=== PATIENT | female | born 1960 | race Caucasian/White ===

== ENCOUNTER 2020-04-01 20:18 | Emergency (ER) | payer MEDICAID ==
[~2020-04-01] VITALS: Ht 167.6 cm; Wt 79.5 kg
[~2020-04-01 20:18] MED LIST: ALBU8.5H8 IH
[2020-04-01 20:39] VITALS: BP 132/86
[2020-04-01 21:12] LABS: BASOPHILS # (AUTO) 0.1 X10'3 (0-0.2); BASOPHILS % (AUTO) 0.3 % (0-1); EOSINOPHILS % (AUTO) 0.1 % (0-6); HEMATOCRIT 42.8 % (35.0-45.0); HEMOGLOBIN 14.9 g/dl (12.0-16.0); LYMPHOCYTES # (AUTO) 1.2 X10'3 (1.1-4.8); MEAN CORPUSCULAR HEMOGLOBIN 36.1 PG (27.0-31.0); MEAN CORPUSCULAR HGB CONC 34.7 g/dL (33.0-36.5); MEAN CORPUSCULAR VOLUME 104.1 FL (78-98); MEAN PLATELET VOLUME 7.9 FL (7.4-10.4); MONOCYTES # (AUTO) 1.3 X10'3 (0-0.9); MONOCYTES % (AUTO) 8.3 % (2-12); NEUTROPHILS # (AUTO) 12.7 X10'3 (1.8-7.7); NEUTROPHILS % (AUTO) 83.3 % (42-75); PLATELET COUNT 288 X10'3 (140-440); RED BLOOD COUNT 4.11 X10'6 (4.20-5.60); RED CELL DISTRIBUTION WIDTH 13.2 % (11.5-14.5); WHITE BLOOD COUNT 15.2 X10'3 (4.5-11.0)
[2020-04-01 21:27] LABS: ALANINE AMINOTRANSFERASE 65 U/L (12-78); ALBUMIN 3.6 G/DL (3.4-5.0); ALBUMIN/GLOBULIN RATIO 0.9 (1.1-1.5); ALKALINE PHOSPHATASE 144 IU/L (46-116); ANION GAP 10 (8-16); ASPARTATE AMINO TRANSFERASE 43 U/L (10-37); BILIRUBIN,TOTAL 0.4 MG/DL (0.1-1.0); BLOOD UREA NITROGEN 18 MG/DL (7-18); BUN/CREATININE RATIO 13.7 (6.6-38.0); CALCIUM 9.5 MG/DL (8.5-10.1); CHLORIDE 104 MMOL/L (99-107); CREATININE 1.31 MG/DL (0.40-0.90); GLUCOSE 118 MG/DL (70-104); LIPASE < 50 U/L (73-393); POTASSIUM 4.6 MMOL/L (3.5-5.1); SODIUM 141 MMOL/L (135-145); TOTAL PROTEIN 7.4 G/DL (6.4-8.2); eGFR 41 ML/MIN
--- NOTE | 2020-04-01 21:47 | NUR ---
NEIGHBOR MARCELA CALLED, STATES TO SEND PT HOME VIA [facility] AND THAT SHE WILL PAY FOR IT. [phone]
[2020-04-01] MEDS ORDERED: ondansetron/PF 4mg/2ml inj IV ONE (22:10)
[2020-04-01] MEDS ORDERED: normal saline 1000ML IV soln IVB ONE (22:10)
[2020-04-01] MEDS ORDERED: morphine 4 MG/ML inj SYRINge IV ONE (22:10)
[2020-04-01] MEDS ORDERED: iohexol 300mg/ml 100ml inj. ONE (22:15)
[2020-04-01 22:26] LABS: OCCULT BLOOD STOOL POSITIVE (Neg)
[2020-04-01 22:29] LABS: CLARITY,URINE CLEAR (Clear); COLOR,URINE YELLOW (Yellow); GLUCOSE, URINE NEGATIVE (Neg); KETONES,URINE NEGATIVE (Neg); LEUKOCYTE ESTERASE ,URINE TRACE (Neg); NITRITES, URINE NEGATIVE (Neg); OCCULT BLOOD,URINE MODERATE (Neg); PROTEIN,URINE NEGATIVE (Neg); UROBILINOGEN,URINE 0.2 E.U/dL (0.2-1.0)
[2020-04-01 22:33] LABS: UA COLLECTION TYPE CLN CATCH MIDSTREAM
[2020-04-01 22:34] LABS: WBC,URINE 0-4 /HPF (0-4)
[2020-04-01 22:35] LABS: BACTERIA,URINE 2+ /HPF (Neg); COARSE GRANULAR CAST 0-3 /LPF (NEGATIVE); RBC,URINE 0-2 /HPF (0-2); SQUAMOUS EPITHELIAL CELL,UR FEW /LPF (FEW)
[2020-04-01] MEDS ORDERED: acetaminophen 325mg tablet PO ONE (22:35)
--- NOTE | 2020-04-01 22:37 | NUR ---
PT REFUSED MORPHINE, DR BARNEY INFORMED AND HE ORDERED TYLENOL FOR HER, SHE IS AT CT CURRENTLY.
[2020-04-01] MEDS ORDERED: ONDA4TAB6 PO (23:22)
[2020-04-01] MEDS ORDERED: AMOX-422 PO (23:22)
== END 2020-04-01 23:45 | disposition home or self-care (01) ==
LOC: ER 20:19
DX: K52.9 Noninfective gastroenteritis and colitis, unspecified (principal); R10.32 Left lower quadrant pain; Z88.5 Allergy status to narcotic agent
CPT/HCPCS: 36415; 74177; 80053; 81001; 82272; 83690; 85025; 87088; 96374; 99285; J2405; J7030; Q9967

== ENCOUNTER 2023-04-09 15:54 | Inpatient (IN) | payer MEDICAID ==
[~2023-04-09] VITALS: Ht 167.6 cm; Wt 75.2 kg
[~2023-04-09 15:54] MED LIST changes: +ALBU8.5H17 IH; -ALBU8.5H8 IH; +ONDA4TAB6 PO
[2023-04-09 17:11] LABS: BASOPHILS % (AUTO) 0.3 % (0-1); EOSINOPHILS % (AUTO) 0.1 % (0-6); HEMATOCRIT 42.4 % (35.0-45.0); HEMOGLOBIN 14.7 g/dl (12.0-16.0); LYMPHOCYTES # (AUTO) 0.4 X10'3 (1.1-4.8); LYMPHOCYTES % (AUTO) 4.9 % (21-51); MEAN CORPUSCULAR HEMOGLOBIN 36.4 PG (27.0-31.0); MEAN CORPUSCULAR HGB CONC 34.7 g/dL (33.0-36.5); MEAN CORPUSCULAR VOLUME 104.7 FL (78-98); MEAN PLATELET VOLUME 7.8 FL (7.4-10.4); MONOCYTES # (AUTO) 0.5 X10'3 (0-0.9); MONOCYTES % (AUTO) 6.5 % (2-12); NEUTROPHILS # (AUTO) 6.7 X10'3 (1.8-7.7); NEUTROPHILS % (AUTO) 88.2 % (42-75); PLATELET COUNT 214 X10'3 (140-440); RED BLOOD COUNT 4.05 X10'6 (4.20-5.60); RED CELL DISTRIBUTION WIDTH 13.5 % (11.5-14.5); WHITE BLOOD COUNT 7.6 X10'3 (4.5-11.0)
[2023-04-09 17:19] LABS: ALANINE AMINOTRANSFERASE 32 U/L (12-78); ALBUMIN 3.4 G/DL (3.4-5.0); ALBUMIN/GLOBULIN RATIO 0.8 (1.1-1.5); ALKALINE PHOSPHATASE 133 IU/L (46-116); ANION GAP 12 (8-16); ASPARTATE AMINO TRANSFERASE 35 U/L (10-37); BILIRUBIN,TOTAL 0.5 MG/DL (0.1-1.0); BLOOD UREA NITROGEN 10 MG/DL (7-18); BUN/CREATININE RATIO 13.3 (10.0-20.0); CALCIUM 8.9 MG/DL (8.5-10.1); CHLORIDE 93 MMOL/L (99-107); CREATININE 0.75 MG/DL (0.40-0.90); GLUCOSE 103 MG/DL (70-104); POTASSIUM 3.5 MMOL/L (3.5-5.1); SODIUM 129 MMOL/L (135-145); TOTAL CARBON DIOXIDE 23.8 MMOL/L (24-32); TOTAL PROTEIN 7.8 G/DL (6.4-8.2); eCRCL 71 ML/MIN; eGFR 78 ML/MIN
[2023-04-09 17:27] LABS: PRO BRAIN NATRIURETIC PEPTIDE 301 PG/ML (0-125)
[2023-04-09] MEDS ORDERED: nitroGLYCERIN 0.4mg/hour patch TD ONE (17:40)
[2023-04-09] MEDS ORDERED: aspirin 81mg tab.chew PO ONE (17:40)
[2023-04-09] MEDS ORDERED: BUDE10.2 PO (19:15)
[2023-04-09] MEDS ORDERED: LISI10TA27 PO (19:15)
[2023-04-09] MEDS ORDERED: FLUO-1 PO (19:15)
[2023-04-09] MEDS ORDERED: oseltamivir phos 75mg capsule PO ONE (20:50)
[2023-04-09] MEDS ORDERED: temazepam 15mg capsule PO PRN (21:00)
[2023-04-09] MEDS ORDERED: albuterol 2.5 MG/3 ML nebule NEB ONE (21:10)
[2023-04-09 21:22] VITALS: PULSE 96; RESP 30
[2023-04-09 21:40] VITALS: PULSE 103; RESP 24; O2SAT 97
[2023-04-09] MEDS ORDERED: ondansetron 4mg rapidly disintigrating tab PO PRN (22:40)
[2023-04-09] MEDS ORDERED: acetaminophen 325mg tablet PO PRN (22:40)
[2023-04-09] MEDS ORDERED: potassium Cl 20 mEq SR tablet PO PRN ×2 (22:40)
[2023-04-09] MEDS ORDERED: magnesium Cl slow-release 64mg tablet PO PRN (22:40)
[2023-04-09] MEDS ORDERED: diphenhydrAMINE 50 mg/ml inj IV PRN (22:40)
[2023-04-09] MEDS ORDERED: magnesium 2GM in 50ml NS 50 ML IV PRN (22:40)
[2023-04-09] MEDS ORDERED: diphenhydrAMINE 25mg capsule PO PRN (22:40)
[2023-04-09] MEDS ORDERED: HYDROcodone/acetaminophen 10/325mg tab PO PRN (22:40)
[2023-04-09] MEDS ORDERED: acetaminophen 650mg rectal suppository RC PRN (22:40)
[2023-04-09] MEDS ORDERED: magnesium 4gm in 100ml NS 100 ML IV PRN (22:40)
[2023-04-09] MEDS ORDERED: bisacodyl 10mg suppository rectal RC PRN (22:40)
[2023-04-09] MEDS ORDERED: ondansetron/PF 4mg/2ml inj IV PRN (22:40)
[2023-04-09] MEDS ORDERED: magnesium hydroxide 30ml (MOM) UD suspension PO PRN (22:40)
[2023-04-09] MEDS ORDERED: HYDROcodone/acetaminophen 5mg/325mg tablet PO PRN (22:40)
[2023-04-09] MEDS ORDERED: mag hydrox/Alum hydrox/simeth 30ml oral suspension PO PRN (22:40)
[2023-04-09] MEDS ORDERED: potassium Cl 40MEQ/1/2NS 520ml 520 ML IV PRN (22:40)
[2023-04-09] MEDS ORDERED: LORazepam 2 mg/ml vial IV PRN (22:45)
[2023-04-09] MEDS ORDERED: haloperidol lactate 5mg/ml inj IM PRN (22:45)
[2023-04-09] MEDS ORDERED: heparin 10,000 units/1 ML INJ IV ONE (22:45)
[2023-04-09] MEDS ORDERED: albuterol 2.5 MG/3 ML nebule NEB PRN (22:45)
[2023-04-09] MEDS ORDERED: haloperidol 5mg tablet PO PRN (22:45)
[2023-04-09] MEDS ORDERED: dextrose 50%-water 50ml dispensing syringe IV PRN (22:45)
[2023-04-09 22:58] LABS: APTT 30 SECONDS (22-32); INR 0.9 INR; PROTHROMBIN TIME 10.1 SECONDS (9.0-12.0)
[2023-04-09 23:15] LABS: CREATINE KINASE 74 U/L (26-192); ETHANOL < 10 MG/DL (<10); LIPASE 21 U/L (16-77); MAGNESIUM 1.8 MG/DL (1.5-2.4); PHOSPHORUS 3.4 MG/DL (2.3-4.5); PRO BRAIN NATRIURETIC PEPTIDE 439 PG/ML (0-125); THYROID STIMULATING HORMONE 1.97 ulU/ml (0.34-4.50)
[2023-04-09] MEDS: normal saline 1000ml 1,000 ML IV SCH (23:23)
[2023-04-09 23:29] LABS: D-DIMER 0.66 MG/L FEU (0-0.50)
[2023-04-09 23:34] LABS: ABG BASE EXCESS -1.2 mmol/L (-2.0-2.0); ABG HCO3 22.8 mmol/L (22.0-26.0); ABG OXYGEN SATURATION 96.7 % (94-97); ABG PCO2 (T) 35.9 mmHg (32.0-45.0); ABG PO2 (T) 81.6 mmHg (75.0-100.0); ALLEN'S TEST POSITIVE; FCOHb 0.1 % (0.0-3.9); FHHb 3.3 % (0.0-5.0); FLOW 4 L/min; FMetHb 0.3 % (0.0-1.5); FO2Hb 96.3 % (94-97); MODE NASAL CANNULA
[2023-04-09] MEDS: heparin 25,000 UNIT/250ml bag 250 ML IV PRN (23:40)
[2023-04-09 23:49] LABS: BASOPHILS % (AUTO) 0.2 % (0-1); EOSINOPHILS % (AUTO) 0 % (0-6); HEMATOCRIT 39.5 % (35.0-45.0); HEMOGLOBIN 13.6 g/dl (12.0-16.0); LYMPHOCYTES # (AUTO) 0.5 X10'3 (1.1-4.8); MEAN CORPUSCULAR HEMOGLOBIN 36.1 PG (27.0-31.0); MEAN CORPUSCULAR HGB CONC 34.5 g/dL (33.0-36.5); MEAN CORPUSCULAR VOLUME 104.6 FL (78-98); MEAN PLATELET VOLUME 7.9 FL (7.4-10.4); MONOCYTES # (AUTO) 0.8 X10'3 (0-0.9); MONOCYTES % (AUTO) 9.6 % (2-12); NEUTROPHILS # (AUTO) 6.8 X10'3 (1.8-7.7); NEUTROPHILS % (AUTO) 84.2 % (42-75); PLATELET COUNT 220 X10'3 (140-440); RED BLOOD COUNT 3.78 X10'6 (4.20-5.60); RED CELL DISTRIBUTION WIDTH 13.6 % (11.5-14.5); WHITE BLOOD COUNT 8.1 X10'3 (4.5-11.0)
[2023-04-10] VITALS (12 sets, daily range): BP systolic 100–167; BP diastolic 56–95; PULSE 61–93; RESP 18–24; TEMP 97.1–98.4; O2SAT 88–98
[2023-04-10] MEDS: acetaminophen 325mg tablet PO PRN (00:05)
[2023-04-10] MEDS: ipratropium/albuterol 3ml nebule NEB PRN ×3 (03:51→20:13)
[2023-04-10 06:20] LABS: BASOPHILS % (AUTO) 0.3 % (0-1); EOSINOPHILS % (AUTO) 0.1 % (0-6); HEMATOCRIT 38.5 % (35.0-45.0); HEMOGLOBIN 13.4 g/dl (12.0-16.0); LYMPHOCYTES # (AUTO) 0.7 X10'3 (1.1-4.8); LYMPHOCYTES % (AUTO) 9.9 % (21-51); MEAN CORPUSCULAR HEMOGLOBIN 36.8 PG (27.0-31.0); MEAN CORPUSCULAR HGB CONC 34.8 g/dL (33.0-36.5); MEAN CORPUSCULAR VOLUME 105.7 FL (78-98); MEAN PLATELET VOLUME 8.7 FL (7.4-10.4); MONOCYTES # (AUTO) 0.8 X10'3 (0-0.9); NEUTROPHILS # (AUTO) 5.4 X10'3 (1.8-7.7); NEUTROPHILS % (AUTO) 77.7 % (42-75); PLATELET COUNT 198 X10'3 (140-440); RED BLOOD COUNT 3.64 X10'6 (4.20-5.60); RED CELL DISTRIBUTION WIDTH 13.4 % (11.5-14.5)
[2023-04-10 06:30] LABS: ALANINE AMINOTRANSFERASE 31 U/L (12-78); ALBUMIN 2.9 G/DL (3.4-5.0); ALBUMIN/GLOBULIN RATIO 0.7 (1.1-1.5); ALKALINE PHOSPHATASE 124 IU/L (46-116); ANION GAP 12 (8-16); ASPARTATE AMINO TRANSFERASE 43 U/L (10-37); BILIRUBIN,TOTAL 0.3 MG/DL (0.1-1.0); BLOOD UREA NITROGEN 13 MG/DL (7-18); BUN/CREATININE RATIO 15.9 (10.0-20.0); CALCIUM 8.9 MG/DL (8.5-10.1); CHLORIDE 96 MMOL/L (99-107); CHOL/HDL RATIO 3.8 (0.00-4.99); CHOLESTEROL 172 MG/DL (0-200); CREATININE 0.82 MG/DL (0.40-0.90); GLUCOSE 99 MG/DL (70-104); HDL CHOLESTEROL 45 MG/DL (35-60); LDL CHOLESTEROL 101 MG/DL (50-100); MAGNESIUM 1.9 MG/DL (1.5-2.4); POTASSIUM 3.4 MMOL/L (3.5-5.1); SODIUM 131 MMOL/L (135-145); TOTAL CARBON DIOXIDE 23.1 MMOL/L (24-32); TOTAL PROTEIN 7.1 G/DL (6.4-8.2); TRIGLYCERIDES 151 MG/DL (20-135); eCRCL 65 ML/MIN; eGFR 70 ML/MIN
[2023-04-10] MEDS: heparin 10,000 units/1 ML INJ IV PRN (07:24)
[2023-04-10] MEDS ORDERED: CefTRIAXone/D5W-Rocephin 1gm 50 ML IV SCH (08:00)
[2023-04-10] MEDS ORDERED: nitroGLYCERIN 0.2mg/hour patch TD SCH (08:00)
[2023-04-10] MEDS: aspirin 81mg, enteric-coated 1 TAB TABLET.DR PO SCH (09:38)
[2023-04-10] MEDS: oseltamivir phos 75mg capsule PO SCH ×2 (09:38→19:37)
[2023-04-10] MEDS: atorvastatin 20mg tablet PO SCH (09:38)
[2023-04-10] MEDS: pantoprazole 40mg Tablet.DR PO SCH (09:38)
[2023-04-10] MEDS: FLUoxetine 20mg capsule PO SCH (09:39)
[2023-04-10] MEDS: nicotine 21mg patch - 24 hr TD SCH (09:39)
[2023-04-10] MEDS: lisinopril 10 MG tablet PO SCH (09:39)
[2023-04-10] MEDS: docusate sod 100mg capsule PO SCH ×2 (09:39→20:00)
[2023-04-10] MEDS: K and/or MAG REPLACEMENT MC SCH ×2 (09:39→20:00)
[2023-04-10] MEDS: methylPREDNISolone sod succ 125mg/2ml vial IV SCH ×2 (12:32→22:14)
[2023-04-10] MEDS: folic acid 1mg/0.2ml inj IV SCH (12:32)
[2023-04-10] MEDS: thiamine 100mg/ml 2ml inj. IV SCH ×3 (12:33→22:14)
[2023-04-10] MEDS: azithromycin/NS 500mg/250ml 250 ML IV SCH (14:19)
[2023-04-10] MEDS: nitroGLYCERIN 0.2mg/hour patch TD SCH (17:58)
[2023-04-10] MEDS: heparin 25,000 UNIT/250ml bag 250 ML IV PRN (18:08)
[2023-04-11] VITALS (12 sets, daily range): BP systolic 134–143; BP diastolic 71–81; PULSE 76–90; RESP 16–28; TEMP 97–98.9; O2SAT 97–99
[2023-04-11] MEDS: vancomycin/NS 1 GM ADD-VANTAGE 250 ML IV SCH ×3 (00:19→22:20)
[2023-04-11] MEDS: ipratropium/albuterol 3ml nebule NEB PRN (07:02)
[2023-04-11 07:05] LABS: BASOPHILS % (AUTO) 0.2 % (0-1); EOSINOPHILS % (AUTO) 0 % (0-6); HEMATOCRIT 39.3 % (35.0-45.0); HEMOGLOBIN 13.5 g/dl (12.0-16.0); LYMPHOCYTES # (AUTO) 0.6 X10'3 (1.1-4.8); LYMPHOCYTES % (AUTO) 12.2 % (21-51); MEAN CORPUSCULAR HEMOGLOBIN 36.2 PG (27.0-31.0); MEAN CORPUSCULAR HGB CONC 34.4 g/dL (33.0-36.5); MEAN CORPUSCULAR VOLUME 105.2 FL (78-98); MEAN PLATELET VOLUME 8.4 FL (7.4-10.4); MONOCYTES # (AUTO) 0.2 X10'3 (0-0.9); MONOCYTES % (AUTO) 4.5 % (2-12); NEUTROPHILS # (AUTO) 4.1 X10'3 (1.8-7.7); NEUTROPHILS % (AUTO) 83.1 % (42-75); PLATELET COUNT 223 X10'3 (140-440); RED BLOOD COUNT 3.74 X10'6 (4.20-5.60); RED CELL DISTRIBUTION WIDTH 13.4 % (11.5-14.5); WHITE BLOOD COUNT 4.9 X10'3 (4.5-11.0)
[2023-04-11 07:15] LABS: ALANINE AMINOTRANSFERASE 31 U/L (12-78); ALBUMIN 2.7 G/DL (3.4-5.0); ALBUMIN/GLOBULIN RATIO 0.6 (1.1-1.5); ALKALINE PHOSPHATASE 117 IU/L (46-116); ANION GAP 11 (8-16); ASPARTATE AMINO TRANSFERASE 43 U/L (10-37); BILIRUBIN,TOTAL 0.2 MG/DL (0.1-1.0); BLOOD UREA NITROGEN 12 MG/DL (7-18); BUN/CREATININE RATIO 16.9 (10.0-20.0); CHLORIDE 99 MMOL/L (99-107); CREATININE 0.71 MG/DL (0.40-0.90); GLUCOSE 151 MG/DL (70-104); MAGNESIUM 2.1 MG/DL (1.5-2.4); POTASSIUM 3.6 MMOL/L (3.5-5.1); SODIUM 134 MMOL/L (135-145); TOTAL CARBON DIOXIDE 23.8 MMOL/L (24-32); TOTAL PROTEIN 7.2 G/DL (6.4-8.2); eCRCL 75 ML/MIN; eGFR 83 ML/MIN
[2023-04-11] MEDS: K and/or MAG REPLACEMENT MC SCH ×2 (08:00→20:00)
[2023-04-11] MEDS: azithromycin/NS 500mg/250ml 250 ML IV SCH (08:38)
[2023-04-11] MEDS: folic acid 1mg/0.2ml inj IV SCH (08:41)
[2023-04-11] MEDS: nicotine 21mg patch - 24 hr TD SCH (08:42)
[2023-04-11] MEDS: lisinopril 10 MG tablet PO SCH (08:42)
[2023-04-11] MEDS: FLUoxetine 20mg capsule PO SCH (08:42)
[2023-04-11] MEDS: docusate sod 100mg capsule PO SCH ×2 (08:43→20:19)
[2023-04-11] MEDS: thiamine 100mg/ml 2ml inj. IV SCH ×3 (08:43→20:19)
[2023-04-11] MEDS: aspirin 81mg, enteric-coated 1 TAB TABLET.DR PO SCH (08:43)
[2023-04-11] MEDS: atorvastatin 20mg tablet PO SCH (08:43)
[2023-04-11] MEDS: methylPREDNISolone sod succ 125mg/2ml vial IV SCH ×2 (08:43→20:20)
[2023-04-11] MEDS: acetaminophen 325mg tablet PO PRN (08:43)
[2023-04-11] MEDS: oseltamivir phos 75mg capsule PO SCH ×2 (08:43→20:19)
[2023-04-11] MEDS: pantoprazole 40mg Tablet.DR PO SCH (08:47)
[2023-04-11] MEDS: heparin 10,000 units/1 ML INJ IV PRN ×2 (12:32→18:45)
[2023-04-11] MEDS: heparin 25,000 UNIT/250ml bag 250 ML IV PRN (12:33)
[2023-04-11] MEDS: nitroGLYCERIN 0.2mg/hour patch TD SCH (18:05)
[2023-04-11] MEDS: normal saline 1000ml 1,000 ML IV SCH (22:21)
[2023-04-11] MEDS ORDERED: LORazepam 2 mg/ml vial IV PRN (22:45)
[2023-04-11] MEDS ORDERED: LORazepam 1 MG tablet PO PRN (22:45)
[2023-04-12] VITALS (9 sets, daily range): BP systolic 126–168; BP diastolic 62–95; PULSE 72–89; RESP 16–22; TEMP 97.6–98.3; O2SAT 95–98
[2023-04-12] MEDS: acetaminophen 325mg tablet PO PRN ×2 (04:58→17:34)
[2023-04-12 06:10] LABS: HEMOGLOBIN 12.8 g/dl (12.0-16.0)
[2023-04-12 06:11] LABS: BASOPHILS % (AUTO) 0.3 % (0-1); EOSINOPHILS % (AUTO) 0 % (0-6); HEMATOCRIT 37.2 % (35.0-45.0); LYMPHOCYTES % (AUTO) 11.2 % (21-51); MEAN CORPUSCULAR HGB CONC 34.3 g/dL (33.0-36.5); MEAN CORPUSCULAR VOLUME 104.9 FL (78-98); MEAN PLATELET VOLUME 8.7 FL (7.4-10.4); MONOCYTES # (AUTO) 0.7 X10'3 (0-0.9); MONOCYTES % (AUTO) 7.8 % (2-12); NEUTROPHILS % (AUTO) 80.7 % (42-75); PLATELET COUNT 240 X10'3 (140-440); RED BLOOD COUNT 3.55 X10'6 (4.20-5.60); RED CELL DISTRIBUTION WIDTH 13.7 % (11.5-14.5); WHITE BLOOD COUNT 8.6 X10'3 (4.5-11.0)
[2023-04-12 06:30] LABS: ALANINE AMINOTRANSFERASE 32 U/L (12-78); ALBUMIN 2.6 G/DL (3.4-5.0); ALBUMIN/GLOBULIN RATIO 0.7 (1.1-1.5); ALKALINE PHOSPHATASE 92 IU/L (46-116); ANION GAP 9 (8-16); ASPARTATE AMINO TRANSFERASE 27 U/L (10-37); BILIRUBIN,TOTAL 0.2 MG/DL (0.1-1.0); BLOOD UREA NITROGEN 13 MG/DL (7-18); BUN/CREATININE RATIO 20.6 (10.0-20.0); CALCIUM 8.7 MG/DL (8.5-10.1); CHLORIDE 100 MMOL/L (99-107); CREATININE 0.63 MG/DL (0.40-0.90); GLUCOSE 135 MG/DL (70-104); MAGNESIUM 1.9 MG/DL (1.5-2.4); SODIUM 135 MMOL/L (135-145); TOTAL CARBON DIOXIDE 26.1 MMOL/L (24-32); TOTAL PROTEIN 6.5 G/DL (6.4-8.2); eCRCL 84 ML/MIN; eGFR > 90 ML/MIN
[2023-04-12] MEDS: azithromycin/NS 500mg/250ml 250 ML IV SCH (07:51)
[2023-04-12] MEDS: thiamine 100mg/ml 2ml inj. IV SCH ×3 (07:57→20:09)
[2023-04-12] MEDS: nicotine 21mg patch - 24 hr TD SCH (07:57)
[2023-04-12] MEDS: methylPREDNISolone sod succ 125mg/2ml vial IV SCH ×2 (07:57→20:09)
[2023-04-12] MEDS: folic acid 1mg/0.2ml inj IV SCH (07:57)
[2023-04-12] MEDS: aspirin 81mg, enteric-coated 1 TAB TABLET.DR PO SCH (07:57)
[2023-04-12] MEDS: atorvastatin 20mg tablet PO SCH (07:58)
[2023-04-12] MEDS: pantoprazole 40mg Tablet.DR PO SCH (07:58)
[2023-04-12] MEDS: docusate sod 100mg capsule PO SCH ×2 (07:58→20:00)
[2023-04-12] MEDS: FLUoxetine 20mg capsule PO SCH (07:58)
[2023-04-12] MEDS: oseltamivir phos 75mg capsule PO SCH ×2 (07:58→20:32)
[2023-04-12] MEDS: lisinopril 10 MG tablet PO SCH (07:58)
[2023-04-12] MEDS: K and/or MAG REPLACEMENT MC SCH ×2 (08:00→20:00)
[2023-04-12] MEDS ORDERED: VANCOMYCIN LEVEL IV ONE (09:30)
[2023-04-12] MEDS: ipratropium/albuterol 3ml nebule NEB PRN (09:48)
[2023-04-12] MEDS: VANCOmycin 1250MG/NS 250ml Bag 250 ML IV SCH (13:41)
[2023-04-12] MEDS: nitroGLYCERIN 0.2mg/hour patch TD SCH (20:43)
[2023-04-13] MEDS: VANCOmycin 1250MG/NS 250ml Bag 250 ML IV SCH (01:10)
[2023-04-13] MEDS: acetaminophen 325mg tablet PO PRN ×2 (01:17→05:45)
[2023-04-13 02:00] VITALS: BP 146/85; PULSE 83; RESP 18; TEMP 98.1; O2SAT 93
[2023-04-13 06:00] VITALS: BP 151/81; PULSE 76; RESP 20; TEMP 98.3; O2SAT 97
[2023-04-13 07:11] LABS: BASOPHILS % (AUTO) 0.3 % (0-1); EOSINOPHILS % (AUTO) 0 % (0-6); HEMATOCRIT 37.8 % (35.0-45.0); HEMOGLOBIN 13.2 g/dl (12.0-16.0); LYMPHOCYTES # (AUTO) 1.1 X10'3 (1.1-4.8); LYMPHOCYTES % (AUTO) 13.9 % (21-51); MEAN CORPUSCULAR HEMOGLOBIN 36.2 PG (27.0-31.0); MEAN CORPUSCULAR HGB CONC 34.9 g/dL (33.0-36.5); MEAN CORPUSCULAR VOLUME 103.6 FL (78-98); MEAN PLATELET VOLUME 8.3 FL (7.4-10.4); MONOCYTES # (AUTO) 0.9 X10'3 (0-0.9); NEUTROPHILS % (AUTO) 74.8 % (42-75); PLATELET COUNT 279 X10'3 (140-440); RED BLOOD COUNT 3.65 X10'6 (4.20-5.60); RED CELL DISTRIBUTION WIDTH 13.1 % (11.5-14.5)
[2023-04-13 07:43] LABS: ALANINE AMINOTRANSFERASE 27 U/L (12-78); ALBUMIN 2.9 G/DL (3.4-5.0); ALBUMIN/GLOBULIN RATIO 0.7 (1.1-1.5); ALKALINE PHOSPHATASE 93 IU/L (46-116); ANION GAP 8 (8-16); BILIRUBIN,TOTAL 0.5 MG/DL (0.1-1.0); BLOOD UREA NITROGEN 15 MG/DL (7-18); BUN/CREATININE RATIO 24.6 (10.0-20.0); CALCIUM 9.1 MG/DL (8.5-10.1); CHLORIDE 98 MMOL/L (99-107); CREATININE 0.61 MG/DL (0.40-0.90); GLUCOSE 100 MG/DL (70-104); SODIUM 135 MMOL/L (135-145); TOTAL CARBON DIOXIDE 28.8 MMOL/L (24-32); TOTAL PROTEIN 6.9 G/DL (6.4-8.2); eCRCL 87 ML/MIN; eGFR > 90 ML/MIN
[2023-04-13 07:44] LABS: ASPARTATE AMINO TRANSFERASE 32 U/L (10-37); POTASSIUM 4.2 MMOL/L (3.5-5.1)
[2023-04-13] MEDS: nicotine 21mg patch - 24 hr TD SCH (07:52)
[2023-04-13] MEDS: methylPREDNISolone sod succ 125mg/2ml vial IV SCH (07:52)
[2023-04-13] MEDS: pantoprazole 40mg Tablet.DR PO SCH (07:53)
[2023-04-13] MEDS: FLUoxetine 20mg capsule PO SCH (07:53)
[2023-04-13] MEDS: lisinopril 10 MG tablet PO SCH (07:53)
[2023-04-13] MEDS: aspirin 81mg, enteric-coated 1 TAB TABLET.DR PO SCH (07:54)
[2023-04-13] MEDS: atorvastatin 20mg tablet PO SCH (07:54)
[2023-04-13] MEDS: docusate sod 100mg capsule PO SCH (08:00)
[2023-04-13] MEDS: oseltamivir phos 75mg capsule PO SCH (08:00)
[2023-04-13] MEDS: K and/or MAG REPLACEMENT MC SCH (08:00)
[2023-04-13] MEDS ORDERED: azithromycin 250mg tablet PO SCH (08:00)
[2023-04-13 08:21] VITALS: PULSE 79; RESP 22; O2SAT 96
[2023-04-13] MEDS: ipratropium/albuterol 3ml nebule NEB PRN (08:21)
[2023-04-13 08:22] VITALS: PULSE 79; RESP 20
[2023-04-13 11:00] VITALS: BP 157/82; PULSE 83; RESP 18; TEMP 97.5; O2SAT 94
[2023-04-13] MEDS ORDERED: ALBU2.5V7 NEB (11:03)
[2023-04-13] MEDS ORDERED: NICO-687 TD (11:03)
[2023-04-13] MEDS ORDERED: TAM75C PO (11:03)
[2023-04-13] MEDS ORDERED: LORazepam 2 mg/ml vial IV PRN (22:45)
[2023-04-13] MEDS ORDERED: LORazepam 1 MG tablet PO PRN (22:45)
[2023-04-14] MEDS ORDERED: VANCOMYCIN LEVEL IV ONE (00:30)
[2023-04-14] MEDS ORDERED: thiamine 100mg tablet PO SCH (08:00)
[2023-04-14] MEDS ORDERED: folic acid 1mg tablet PO SCH (08:00)
== END 2023-04-13 12:04 | disposition home health service (06) | DRG 133 ==
LOC: ER 15:55 → ED HOLD 21:52 → PCU 3S 04-10 02:51
PROVIDERS: ADMIT Family Medicine; ATTEND Internal Medicine
DX: J96.01 Acute respiratory failure with hypoxia (principal); I21.A1 Myocardial infarction type 2; I50.9 Heart failure, unspecified; E87.1 Hypo-osmolality and hyponatremia; I11.0 Hypertensive heart disease with heart failure; J10.1 Influenza due to other identified influenza virus with other respiratory manifestations; F17.210 Nicotine dependence, cigarettes, uncomplicated; E78.5 Hyperlipidemia, unspecified; E87.6 Hypokalemia; J43.9 Emphysema, unspecified; F32.A Depression, unspecified; J98.11 Atelectasis; Z20.822 Contact with and (suspected) exposure to COVID-19; Y90.9 Presence of alcohol in blood, level not specified; F10.10 Alcohol abuse, uncomplicated; Z28.310 Unvaccinated for COVID-19; Z79.899 Other long term (current) drug therapy; Z88.5 Allergy status to narcotic agent; Z88.8 Allergy status to other drugs, medicaments and biological substances; Z79.82 Long term (current) use of aspirin
CPT/HCPCS: 36415; 36600; 71045; 80053; 80061; 80202; 80320; 82550; 82803; 82948; 83036; 83605; 83690; 83735; 83880; 84100; 84443; 84484; 85018; 85025; 85379; 85610; 85730; 87040; 87077; 87081; 87186; 87502; 87503; 87811; 93306; 94640; 94760; 99285; A6449; G0378; J0456; J0696; J1630; J1644; J2930; J3370; J3411; J3490; J7030; J7040